=== PATIENT | male | born 1990 | race Caucasian/White ===

== ENCOUNTER 2017-04-17 09:35 | Emergency (ER) | payer OTHER ==
[~2017-04-17] VITALS: Ht 180.3 cm; Wt 79.0 kg
[~2017-04-17 09:35] MED LIST: LEVA750T PO; PRED5PAK PO; ROBIACUDC PO
[2017-04-17 09:44] VITALS: BP 151/79; PULSE 97; RESP 16; TEMP 97.8; O2SAT 94
[2017-04-17] MEDS ORDERED: SODIUM CHLORIDE 0.9% FLUSH 10 ML FLUSH IVF PRN (09:45)
[2017-04-17] MEDS ORDERED: SODIUM CHLOR 0.9% 1000 ML INJ 1,000 ML IV ONE (09:45)
[2017-04-17] MEDS ORDERED: PROCHLORPERAZINE INJ 10 MG/2 ML VIAL IVP ONE (09:45)
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
== END 2017-04-17 11:21 | disposition home or self-care (01) ==
LOC: PHEFT 09:35
DX: S70.01XA Contusion of right hip, initial encounter (principal); M79.641 Pain in right hand; V03.90XA Pedestrian on foot injured in collision with car, pick-up truck or van, unspecified whether traffic or nontraffic accident, initial encounter
CPT/HCPCS: 73130; 73502; 99284